=== PATIENT | female | born 1995 | race Two or more races ===

== ENCOUNTER 2017-12-28 14:12 | Emergency (ER) | payer MEDICAID ==
[~2017-12-28] VITALS: Ht 172.7 cm; Wt 122.5 kg
[2017-12-28 15:37] VITALS: BP 131/70
== END 2017-12-28 16:13 | disposition home or self-care (01) ==
LOC: ER 14:12
DX: R21 Rash and other nonspecific skin eruption (principal); Z88.0 Allergy status to penicillin